=== PATIENT | male | born 1975 | race Caucasian/White ===

== ENCOUNTER 2024-03-31 04:15 | Day surgery (SDC) | payer OTHER ==
[2024-03-25 10:08] VITALS: BMI 27.3
[2024-03-31] MEDS: INSULIN REGULAR HUMAN 100 UNITS/ML *VIAL SQ ONE (13:00)
[2024-03-31] MEDS ORDERED: MIDAZOLAM HCL 2 MG/2 ML SINGLE DOSE VIAL ONE (13:22)
[2024-03-31] MEDS ORDERED: PROPOFOL 40 ML ONE (13:23)
[2024-03-31] MEDS ORDERED: ELECTROLYTE-148 SOLN 1,000 ML IV SCH (13:30)
[2024-03-31] MEDS: ceFAZolin 2 GRAM PREMIX BAG IVPB ONE ×2 (13:38)
[2024-03-31] MEDS: LIDOCAINE HCL 2% (50ML VIAL) NR ONE (13:42)
[2024-03-31] MEDS ORDERED: KETOROLAC TROMETHAMINE 30 MG/1 ML VIAL ONE (13:49)
[2024-03-31] MEDS ORDERED: ePHEDrine SULFATE 50 MG/1 ML AMPULE ONE (13:58)
[2024-03-31] MEDS: BACITRACIN ZINC 15 GM TUBE TOPICAL OINTMENT TP ONE ×2 (14:06)
[2024-03-31] MEDS ORDERED: ONDANSETRON 4 MG/2 ML VIAL IVPUSH PRN (14:18)
[2024-03-31] MEDS ORDERED: ACETAMINOPHEN INJECTION 100 ML ONE (14:26)
[2024-03-31] MEDS: ACETAMINOPHEN 1000 MG/100 ML BAG IVPB ONE (14:28)
[2024-03-31] MEDS: LACTATED RINGERS SOLUTION 1,000 ML IV SCH (14:30)
[2024-03-31] MEDS: INSULIN (LEVEMIR) 100 UNITS/ML UNITS SQ ONE (15:31)
[2024-03-31 15:36] VITALS: BP 133/86; PULSE 66; RESP 16; TEMP 97.1
== END 2024-03-31 16:05 | disposition home or self-care (01) ==
LOC: JASU-SURG 04:15 → EDBD 14:00 → JASU-SURG 16:05
PROVIDERS: ATTEND Urology
PROC: 0VTTXZZ Resection of Prepuce, External Approach (ICD-10-PCS; principal; 2024-03-31 14:00)
DX: N47.1 Phimosis (principal)
CPT/HCPCS: 82962; 88304-TC; 94760; J0131